=== PATIENT | female | born 1965 | race Caucasian/White ===

== ENCOUNTER 2024-04-09 13:53 | Observation (INO) ==
--- NOTE | 2024-04-09 14:36 | Emergency Department Note ---
Impression & Plan Rectal bleeding, Colitis, Tachycardia, Hypertension ED Provider Note NAME: TONY LUNDBERG AGE: 59 SEX: F : 1965 ARRIVES VIA: Walk-In INFORMANT: [Patient] ED PROVIDER(S): [Noel Fuller MD] CHIEF COMPLAINT: Rectal bleeding HISTORY OF PRESENT ILLNESS: The patient is a 59-year-old female presents to the ER with crampy lower abdominal pain that began last night. Patient was somewhat sweaty with the initial episode. She has had this happen to her before from her IBS. She initially was not concerned. The symptoms though persisted all night and then this morning, she went to move her bowels and basically, she just has bloody discharge. The patient has had several bouts of what she thought was going to be diarrhea throughout the day today, but, it has been primarily just blood. The cramping in the lower abdomen has persisted. There was some nausea last evening but no vomiting. No fever. She ate out last night at [employer] but her food seemed fine. She has not had sick contacts. She is not on any blood thinning agents. PMHx/PSHx/Social Hx: See Below PHYSICAL EXAM: GENERAL: Patient is in no acute distress. HEENT: No acute trauma, normocephalic atraumatic, mucous membranes moist, no nasal congestion. NECK: No stridor, no adenopathy, no meningismus, trachea is midline. LUNGS: Clear to auscultation bilaterally, no wheeze, no rhonchi, breath sounds equal. HEART: Mildly tachycardic, regular rhythm, no murmurs. ABDOMEN: Soft, mildly tender to the bilateral lower abdominal quadrants. No peritonitis or distention. Bowel sounds are hypoactive. EXTREMITIES: No cyanosis, full range of motion of all the joints without pain or difficulty. NEUROLOGIC: Oriented x 3, no acute motor or sensory deficits, no focal weakness. SKIN: No jaundice, no diaphoresis. Rectal: No external source for bleeding seen. No hemorrhoids. Digital exam reveals bright red blood per rectum. This exam was done with a female rhit. DIFFERENTIAL DIAGNOSIS: Diverticulitis or colitis, anemia, dehydration, electrolyte imbalance, viral or foodborne illness, among others. EMERGENCY DEPARTMENT PROCEDURES: MEDICAL DECISION MAKING: There is no leukocytosis or concerning anemia. There is a normal platelet count. No coagulopathy. No renal failure or significant electrolyte abnormality. No concerning liver enzyme elevation. ECG shows a sinus tachycardia, no dysrhythmia or ischemia. Cardiac enzyme testing x 1 is not consistent with acute cardiac injury. Abdominal and pelvis CT shows colitis. On exam, the patient was not febrile. She was tachycardic and somewhat hypertensive. Digital rectal exam reveals of bright red blood per rectum. Patient was given IV saline, 2 L. The patient has no history of hypertension. She is asymptomatic with the higher blood pressure readings, for now, I think observation would be adequate. The patient presents with lower abdominal pain, tachycardia and persistent bright red blood per rectum. She does have colitis on CT imaging. I do think she requires a hospital stay, she would benefit from further hydration as well as observation. She may require a colonoscopy if things are persisting. The patient was asked to provide a stool sample, she has not been able to do so. She has produced only blood rectally. I did speak with the patient, I spoke with case management, the on-call hospitalist was consulted. Prior/Outside records/notes reviewed: None ECG per my interpretation: Indication was tachycardia. The ECG shows a sinus tachycardia with a rate of 112. There is no acute ST elevation, no PVCs. The QTc is 461. Continuous Cardiac Monitoring: An order was placed for continuous cardiac monitoring. The monitor shows a rate of 110 with sinus tachycardia. Imaging/x-ray results per my interpretation: Chronic Medical/Social conditions affecting care: Care/Management discussed with: Case management, the on-call hospitalist. Level of care consideration(s): After review of the information above and other included data: --I believe the patient requires escalation of care to admission DISPOSITION: Admission Past Med/Surg History Problem List (Updated 04/09/24 @ 17:24 by Noel Fuller MD) Hypertension (Acute) Tachycardia (Acute) Colitis (Acute) Rectal bleeding (Acute) Diabetes mellitus Depression Panic attacks Asthma Fibromyalgia Sleep apnea Hyperlipidemia GERD (gastroesophageal reflux disease) Medical History Rheumatoid arthritis Spondylolisthesis at L4-L5 level Neurogenic claudication Avulsion fracture of left ankle Surgical History (Updated 03/30/24 @ 14:50 by LINNEA Lobato) S/P trigger finger release S/P partial hysterectomy 2007 or 2008 Family History (Updated 03/30/24 @ 15:03 by LIZZETH Rodríguez III) Mother Diabetes Dyslipidemia Thyroid cancer Father Parkinsons disease Dementia Alzheimer disease Aunt Pancreatic cancer Aunt Skin cancer Denies family history of Ovarian cancer Prostate cancer Myocardial infarction Breast cancer Colorectal cancer Social History Smoking Status: Never smoker Second Hand Exposure: No; Do You Dip or Chew Tobacco: No; Hx Alcohol Use: No Hx Substance Use: No Preferred Language: Austrian Visual Impairment: No Limitations Hearing Ability: Normal marital status: Current Living Situation: Spouse current occupational status: employed 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 How many Children do You have: 2 Feels Safe at Home: Yes Childhood Exposure to Second-Hand Smoke: No Diet: regular Dental Care, Regularly: Yes Physical Activity Frequency: Does not Exercise Seatbelt Use: always Sunscreen Use: Yes Allergies Allergies Allergy/AdvReac Type Severity Reaction Status Date / Time No Known Allergies Allergy Verified 03/30/24 14:41 Home Meds Home Medications Medication Instructions Recorded Confirmed atorvastatin 20 mg tablet (Lipitor) 20 mg PO DAILY 12/23/20 03/30/24 cyclobenzaprine 10 mg tablet 10 mg PO HS 12/23/20 03/30/24 duloxetine 60 mg capsule,delayed 60 mg PO DAILY 12/23/20 03/30/24 release (Cymbalta) gabapentin 400 mg capsule 400 mg PO TID 12/23/20 03/30/24 pantoprazole 40 mg tablet,delayed 40 mg PO DAILY 12/23/20 03/30/24 release (Protonix) celecoxib 100 mg capsule (Celebrex) 100 mg PO BID 10/09/21 03/30/24 gabapentin 100 mg capsule 100 mg PO TID 10/09/21 03/30/24 albuterol sulfate 90 mcg/actuation 2 puff inhalation Q4H PRN 09/17/22 03/30/24 aerosol inhaler Shortness Of Breath Or Wheezing metformin 500 mg tablet 2,000 mg PO DAILY 07/31/23 03/30/24 clonazepam 1 mg tablet (Klonopin) 1 mg PO DAILY PRN 03/30/24 03/30/24 ipratropium bromide 21 mcg (0.03 1 spray intranasal BID PRN 03/30/24 %) nasal spray Previous Rx's Medication Instructions Recorded azelastine 137 mcg (0.1 %) nasal 2 spray intranasal DAILY #30 mL 07/31/23 spray lisinopril 5 mg tablet 5 mg PO DAILY #90 tabs 03/30/24 Results & Data (ED) Vital Signs Vital Signs - 24 hr 04/09/24 13:56 04/09/24 16:06 04/09/24 16:32 Temperature 36.2 C L Temperature Source Temporal Artery Scan Pulse Rate 122 H Pulse Rate [Right Finger] 110 H 110 H Pulse Rhythm Regular Pulse Strength Normal Respiratory Rate 16 16 19 Respiratory Effort / Characteristics Non-Labored Non-Labored Spontaneous Respiratory Depth Normal Normal Blood Pressure 130/85 Blood Pressure [Right Arm] 155/72 H 177/108 H Blood Pressure Mean 100 Blood Pressure Mean [Right Arm] 99 131 Blood Pressure Position Sitting Pulse Oximetry 99 97 98 Oxygen Delivery Method Room Air Room Air Room Air Sepsis Recent Fever Within 48 Hours No Sepsis New/Unexplained Change in Mental Status N/A Sepsis Action Taken by Nursing No Action Required 04/09/24 16:35 Temperature Temperature Source Pulse Rate 112 H Pulse Rate [Right Finger] Pulse Rhythm Pulse Strength Respiratory Rate Respiratory Effort / Characteristics Respiratory Depth Blood Pressure Blood Pressure [Right Arm] Blood Pressure Mean Blood Pressure Mean [Right Arm] Blood Pressure Position Pulse Oximetry Oxygen Delivery Method Sepsis Recent Fever Within 48 Hours Sepsis New/Unexplained Change in Mental Status Sepsis Action Taken by Correction Medications Current Medication List: was personally reviewed by me Laboratory Data Attestation: I reviewed the patient's lab results. 04/09/24 15:01 04/09/24 15:01 Lab Results 04/09/24 Range/Units 15:01 WBC 10.38 (4.8-10.8) K/ul RBC 4.49 (4.20-5.40) M/uL Hgb 14.1 (12.0-16.0) g/dl Hct 42.2 (37.0-47.0) % MCV 94.0 (80.0-100.0) fL MCH 31.4 (25.0-34.0) pg MCHC 33.4 (32.0-36.0) g/dL RDW Std Deviation 43.7 (36.4-46.3) fL RDW Coeff of Ra 12.8 (11.5-14.5) % Plt Count 298 (130-400) K/uL MPV 10.8 (9.4-12.4) fL PT 10.7 (9.0-12.0) Seconds INR 1.0 (0.9-1.1) APTT 25 (21-31) Seconds PTT Ratio 0.9 Sodium 141 (136-145) mmol/L Potassium 4.3 (3.5-5.1) mmol/L Chloride 106 (98-107) mmol/L Carbon Dioxide 24 (21-32) mmol/L Anion Gap 11 (3-11) BUN 10 (6-23) mg/dl Creatinine 0.77 (0.6-1.2) mg/dl Est Cr Clr Drug Dosing 84.8 ml/min Est GFR ( Amer) 98.6 ml/min Est GFR (Non-Af Amer) 85.1 ml/min BUN/Creatinine Ratio 13.0 (10-20) Glucose 116 H (70-99(Fasting)) mg/dl Calcium 9.5 (8.6-10.3) mg/dl Total Bilirubin 0.5 (0.2-1.0) mg/dl AST 15 (13-39) U/L ALT 24 (7-52) U/L Alkaline Phosphatase 70 (34-104) U/L Troponin I High Sens < 2.3 (0-14) pg/ml Total Protein 7.3 (6.0-8.3) gm/dl Albumin 4.5 (3.4-5.0) gm/dl Globulin 2.8 (2.5-4.0) gm/dl Albumin/Globulin Ratio 1.6 (0.9-2) Blood Type A Positive Antibody Screen NEGATIVE Administered Medications Sodium Chloride (Nss) 1,000 mls @ 999 mls/hr IV .Q1H1M ONE Stop: 04/09/24 17:20 Last Admin: 04/09/24 16:32 Dose: 999 mls/hr Documented By: ASW Discontinued Medications Sodium Chloride (Nss) 1,000 mls @ 999 mls/hr IV .Q1H1M ONE Stop: 04/09/24 15:24 Last Infusion: 04/09/24 16:09 Dose: Infused Documented By: Admin: 04/09/24 15:01 Dose: 999 mls/hr Documented By: LIZ Ioversol (Optiray 320 100ml) 91 ml IV ONCE ONE Stop: 04/09/24 15:58 Last Admin: 04/09/24 15:57 Dose: 91 ml Documented By: [employer] [facility] Data Radiologist's Impression: Abdomen/Pelvis CT 04/09/24 14:[address] WITH IV CONTRAST CT DOSE: 1273.12 mGy.cm HISTORY: Acute GI bleed bleeding, poss divertic or colitis TECHNIQUE: Multiaxial CT images of the abdomen and pelvis were performed following the IV administration of 92 cc of Optiray, A dose lowering technique was utilized adhering to the principles of ALARA. COMPARISON STUDY: None. FINDINGS: Mild bibasilar atelectasis. 6 mm subpleural solid nodule in the basal right lower lobe on image 6 series 3. No free air. Unremarkable spleen, pancreas, gallbladder and adrenal glands. Hepatic steatosis without evidence of cirrhosis. Patent hepatic and portal veins. Unremarkable kidneys without hydronephrosis. The urinary bladder demonstrates mild circumferential wall thickening. Possible small urachal diverticulum versus median umbilical ligament. No abdominal aortic aneurysm or lymphadenopathy. No bowel obstruction. There is circumferential wall thickening extending from the splenic flexure through the proximal sigmoid with adjacent inflammatory stranding and trace ascites. No CT evidence of acute appendicitis. No drainable fluid collections. No acute fracture. IMPRESSION: 1. A nonspecific colitis extends from the splenic flexure through the proximal sigmoid. 2. No bowel obstruction or pneumoperitoneum. 3. Hepatic steatosis. 4. 6 mm subpleural solid nodule of the right lower lobe. Please refer to below summary of Fleischner criteria recommendations for follow- up of incidental CT nodules (Crystal Maravilla, Guidelines for management of small pulmonary nodules detected on CT scans: A statement from the Fleischner Society, Radiology 237: [phone].) SOLID NODULES Solitary nodule size: <6 mm * Low risk patients: no follow-up needed * high risk patients: optional CT at 12 months Note: newly detected indeterminate nodule in persons 35 years of age or older. * Low risk patients: minimal or absent history of smoking and/or other known risk factors * high risk patients: history of smoking or of other known risk factors (e.g. first degree relative with lung cancer, or exposure to asbestos, radon, uranium) * if a nodule up to 8 mm is partly solid or is ground glass further follow-up is required after 24 months to exclude possible slow growing adenocarcinoma (ANJALI) ACT 112: Negative or not required by law. The above report was generated using voice recognition software. It may contain grammatical, syntax or spelling errors. Electronically signed by: Michael Arias M.D. 04/09/2024 4:54 PM Discharge Plan Visit Data Chief Complaint: Rectal Bleed Stated Complaint: CRAMPING, DIARRHEA, BLOOD IN STOOL ED Provider: Noel Fuller Discharge Problem: Rectal bleeding, Colitis, Tachycardia, Hypertension Patient Disposition: Admitted As Inpatient Condition: Fair Forms Stand Alone Forms: [facility] Prescriptions Prescriptions: No Action duloxetine [Cymbalta] 60 mg capsule,delayed release(DR/EC) 60 mg PO DAILY cyclobenzaprine 10 mg tablet 10 mg PO HS pantoprazole [Protonix] 40 mg tablet,delayed release (DR/EC) 40 mg PO DAILY gabapentin 400 mg capsule 400 mg PO TID Rx Instructions: TOTAL DOSE 500 MG--TAKES WITH 100 MG CAP. atorvastatin [Lipitor] 20 mg tablet 20 mg PO DAILY celecoxib [Celebrex] 100 mg capsule 100 mg PO BID gabapentin 100 mg capsule 100 mg PO TID Rx Instructions: TOTAL DOSE 500 MG--TAKES WITH 400 MG CAP. metformin 500 mg tablet 2,000 mg PO DAILY azelastine 137 mcg (0.1 %) aerosol,spray 2 spray intranasal DAILY Qty: 30 11RF ipratropium bromide 21 mcg (0.03 %) spray,non-aerosol 1 spray intranasal BID PRN Rx Instructions: administer into each nostril clonazepam [Klonopin] 1 mg tablet 1 mg PO DAILY PRN lisinopril 5 mg tablet 5 mg PO DAILY Qty: 90 3RF albuterol sulfate 90 mcg/actuation HFA aerosol inhaler 2 puff inhalation Q4H PRN (Reason: Shortness Of Breath Or Wheezing) Referrals Referrals: Nguyen Casas MD [Outside Practitioners] - Discharge Problem: Hypertension Qualifiers: Hypertension type: unspecified Qualified Code(s): I10 - Essential (primary) hypertension
[2024-04-09] MEDS: SODIUM CHLORIDE 0.9% 1,000 ML IV ONE ×2 (15:01→16:32)
[2024-04-09 15:20] LABS: Hematocrit (blood only) 42.2 % (37.0-47.0); Hemoglobin 14.1 g/dl (12.0-16.0); Mean Corpuscular Hemoglobin 31.4 pg (25.0-34.0); Mean Corpuscular Hgb Conc 33.4 g/dL (32.0-36.0); Mean Platelet Volume 10.8 fL (9.4-12.4); Platelet Count 298 K/uL (130-400); RDW Coefficient of Variation 12.8 % (11.5-14.5); RDW Standard Deviation 43.7 fL (36.4-46.3); Red Blood Count 4.49 M/uL (4.20-5.40); White Blood Count 10.38 K/ul (4.8-10.8)
[2024-04-09 15:36] LABS: Albumin Level 4.5 gm/dl (3.4-5.0); Anion Gap 11 (3-11); Bilirubin,Total 0.5 mg/dl (0.2-1.0); Calcium 9.5 mg/dl (8.6-10.3); Carbon Dioxide 24 mmol/L (21-32); Chloride 106 mmol/L (98-107); Potassium 4.3 mmol/L (3.5-5.1); Sodium 141 mmol/L (136-145)
[2024-04-09 15:42] LABS: Alanine Aminotransferase 24 U/L (7-52); Albumin Globulin Ratio 1.6 (0.9-2); Alkaline Phosphatase 70 U/L (34-104); Aspartate Aminotransferase 15 U/L (13-39); Blood Urea Nitrogen 10 mg/dl (6-23); Creatinine Clr Calc Pharmacy 84.8 ml/min; Est GFR (African American) 98.6 ml/min; Est GFR (Non-African American) 85.1 ml/min; Globulin 2.8 gm/dl (2.5-4.0); Glucose 116 mg/dl (70-99(Fasting)); Total Protein 7.3 gm/dl (6.0-8.3)
[2024-04-09 15:46] LABS: Troponin I High Sensitivity < 2.3 pg/ml (0-14)
[2024-04-09 15:52] LABS: Partial Thromboplastin Ratio 0.9; Partial Thromboplastin Time 25 Seconds (21-31); Prothrombin Time 10.7 Seconds (9.0-12.0)
[2024-04-09] MEDS: OPTIRAY 320 100ml IV ONE (15:57)
--- NOTE | 2024-04-09 16:57 | CT Scan Report ---
ABDOMEN AND PELVIS CT WITH IV CONTRAST CT DOSE: 1273.12 mGy.cm HISTORY: Acute GI bleed bleeding, poss divertic or colitis TECHNIQUE: Multiaxial CT images of the abdomen and pelvis were performed following the IV administrat ion of 92 cc of Optiray, A dose lowering technique was utilized adhering to the principles of ALARA. COMPARISON STUDY: None. FINDINGS: Mild bibasilar atelectasis. 6 mm subpleural solid nodule in the basal right lower lobe on i mage 6 series 3. No free air. Unremarkable spleen, pancreas, gallbladder and adrenal glands. Hepatic steatosis without evidence of cirrhosis. Patent hepatic and portal veins. Unremarkable kidneys withou t hydronephrosis. The urinary bladder demonstrates mild circumferential wall thickening. Possible sma ll urachal diverticulum versus median umbilical ligament. No abdominal aortic aneurysm or lymphadenop athy. No bowel obstruction. There is circumferential wall thickening extending from the splenic flexure thr ough the proximal sigmoid with adjacent inflammatory stranding and trace ascites. No CT evidence of a cute appendicitis. No drainable fluid collections. No acute fracture. IMPRESSION: 1. A nonspecific colitis extends from the splenic flexure through the proximal sigmoid. 2. No bowel obstruction or pneumoperitoneum. 3. Hepatic steatosis. 4. 6 mm subpleural solid nodule of the right lower lobe. Please refer to below summary of Fleischner criteria recommendations for follow-up of incidental CT n odules (Crystal Maravilla, Guidelines for management of small pulmonary nodules detected on CT scans: A sta tement from the Fleischner Society, Radiology 237: [phone].) SOLID NODULES Solitary nodule size: <6 mm * Low risk patients: no follow-up needed * high risk patients: optional CT at 12 months Note: newly detected indeterminate nodule in persons 35 years of age or older. * Low risk patients: minimal or absent history of smoking and/or other known risk factors * high risk patients: history of smoking or of other known risk factors (e.g. first degree relative with lung cancer, or exposure to asbestos, radon, uranium) * if a nodule up to 8 mm is partly solid or is ground glass further follow-up is required after 24 m onths to exclude possible slow growing adenocarcinoma (ANJALI) ACT 112: Negative or not required by law. The above report was generated using voice recognition software. It may contain grammatical, syntax o r spelling errors. Electronically signed by: Michael Arias M.D. 04/09/2024 4:54 PM
--- NOTE | 2024-04-09 18:43 | History & Physical Report ---
Date of Service April 09, 2024 Assessment & Plan (1) Colitis: (2) Bloody diarrhea: (3) Depression: (4) Asthma: (5) Sleep apnea: (6) Diabetes mellitus: (7) Hypertension: (8) GERD (gastroesophageal reflux disease): (9) Hyperlipidemia: Plan Patient is a 59 yo F w/ a PMHx of HTN, HLD, T2DM, GERD, sleep apnea, depression, panic attacks, asthma, fibromyalgia, and [id number] who presents today after a 1-day history of bloody bowel movements/diarrhea that began this morning after experiencing cramping and diarrhea last night. 1) Bloody diarrhea/Nonspecific colitis - WBC count WNL, BMP WNL, - last colonoscopy in 2017, normal - CT-AP w/ IV contrast: showing nonspecific colitis from splenic flexure through sigmoid colon - Stool PCR panel ordered, still uncollected; C. diff toxin gene PCR ordered - ESR and CRP ordered, in the event there's an undiagnosed IBD component to this 2) IBS-D (diarrhea sub-type) - continue duloxetine (treats multiple conditions present in patient) - resume pro-biotic (PB8 brand) once discharged 3) GERD - continue pantoprazole, 40 mg, PO, daily 4) HTN - hold lisinopril, 5 mg, PO, daily and re-start tomorrow if BP's high 5) Asthma - continue azelastine, ipratropium bromide 6) T2DM - insulin order set placed, patient insulin naive - 50 CF, no basal insulin ordered, no carb coverage ordered 7) HLD - continue pravastatin 8) Sleep apnea - CPAP worn nightly; ordered during inpatient stay, 12 cm H2O cont. pressure Code status: Full code Disposition: [id number] FENGI: Clear liquids DVT Prophylaxis: SCD and ambulation as necessary History of Present Illness Chief Complaint: cramping, bloody bowel movements Primary Care Provider: Santino Vasques, III, INSULATION CUPOL[employer] CHARGER Patient had her first bloody, mucous-like this morning and has had five in total, including 1 since arriving at the hospital. Patient has never had bloody bowel movements before, but has diarrhea-predominant IBS for 20 yrs. Patient had her last colonoscopy in 2017, at which pt they said repeat in 5 yrs (everything nml, but suboptimal prep). Since that time pt has had ~ 1 IBS/diarrhea episode per year and just used Protonix and a probiotic, PB8. The patient had her last meal out at [employer] on Sat, had severe cramping at 9:30 pm, moved her bowels at 11 pm, diarrhea but pt thought it was IBS episode. At 6:30 am at which pt the cramping pain, fecal urgency woke her up. Every BM since then has been bloody diarrhea. Patient received two courses of antibiotics since January for sinus infections. Has not received any steroid courses for her rheumatoid arthritis and is on no alf medications for this condition. Allergies Allergy/AdvReac Type Severity Reaction Status Date / Time No Known Allergies Allergy Verified 04/09/24 17:59 Home Medications Medication Instructions Recorded Confirmed Type cyclobenzaprine 10 mg tablet 10 mg PO HS 12/23/20 04/09/24 History duloxetine 60 mg capsule,delayed 60 mg PO DAILY 12/23/20 04/09/24 History release (Cymbalta) pantoprazole 40 mg tablet,delayed 40 mg PO DAILY 12/23/20 04/09/24 History release (Protonix) azelastine 137 mcg (0.1 %) nasal 2 spray intranasal DAILY #30 mL 07/31/23 Rx spray ipratropium bromide 21 mcg (0.03 1 spray intranasal BID 03/30/24 04/09/24 History %) nasal spray lisinopril 5 mg tablet 5 mg PO DAILY #90 tabs 03/30/24 04/09/24 Rx metformin 500 mg tablet,extended 2,000 mg PO QAM 04/09/24 04/09/24 History release 24 hr pravastatin 80 mg tablet 80 mg PO HS 04/09/24 04/09/24 History Past Med/Surg History Problem List (Updated 04/09/24 @ 21:01 by Edwin Logan MD) Bloody diarrhea Hypertension (Acute) Tachycardia (Acute) Colitis (Acute) Rectal bleeding (Acute) Diabetes mellitus Depression Panic attacks Asthma Fibromyalgia Sleep apnea Hyperlipidemia GERD (gastroesophageal reflux disease) Medical History Rheumatoid arthritis Spondylolisthesis at L4-L5 level Neurogenic claudication Avulsion fracture of left ankle Surgical History (Updated 03/30/24 @ 14:50 by LINNEA Lobato) S/P trigger finger release S/P partial hysterectomy 2007 or 2008 Family History (Updated 03/30/24 @ 15:03 by LIZZETH Rodríguez III) Mother Diabetes Dyslipidemia Thyroid cancer Father Parkinsons disease Dementia Alzheimer disease Aunt Pancreatic cancer Aunt Skin cancer Denies family history of Ovarian cancer Prostate cancer Myocardial infarction Breast cancer Colorectal cancer Social History Smoking Status: Never smoker Second Hand Exposure: No; Do You Dip or Chew Tobacco: No; Hx Alcohol Use: No Hx Substance Use: No Preferred Language: Malay Communication Ability: Effective Visual Impairment: No Limitations Hearing Ability: Normal Dowel Maker Required: No Beliefs That Will Affect Care: None marital status: Current Living Situation: Spouse current occupational status: employed 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 How many Children do You have: 2 Other Information That Helps Us Care for You: No Feels Safe at Home: Yes Safety Concerns: Feels Safe At This Time Childhood Exposure to Second-Hand Smoke: No Diet: regular Dental Care, Regularly: Yes Physical Activity Frequency: Does not Exercise Seatbelt Use: always Sunscreen Use: Yes Assistive Devices: CPAP Review of Systems Constitutional: + fatigue; no fever, no chills and no we akness Ear, Nose, Mouth, Throat: no nasal congestion, no nasal discharge, no post nasal drip and no sore throat Respiratory: no cough, no chest congestion, no dyspnea and no wheezing Cardiovascular: no chest pain, no palpitations and no lightheadedness Gastrointestinal: + abdominal pain, + cramping, + diarrhea /loose stools, + constant urge to pass stools and + blood in stools; no nausea and no vomiting Genitourinary: no dysuria and no urinary frequency Neurologic: no unsteadiness, no tingling, no numbness, no dizziness and no headache(s) Physical Exam Constitutional: WD/WN, vitals as above Respiratory: normal respiratory effort, lungs clear to auscultation Cardiovascular: RRR, no murmur, no edema Extremities: normal capillary refill; no calf tenderness and no pedal edema Gastrointestinal (Abdomen): Inspection/Auscultation: normal bowel sounds Percussion/Palpation: + abdomen tender (tenderness in lower abdomen bilaterally) and abdomen soft; no abdominal mass Psychiatric: A+Ox3, euthymic affect Results & Data Results & Data Vital Signs (Past 12 Hours) Vital Signs Temp Pulse Pulse Resp BP BP Pulse Ox 04/09/24 17:54 115 H 16 163/107 H 99 04/09/24 16:35 112 H 04/09/24 16:32 110 H 19 177/108 H 98 04/09/24 16:06 110 H 16 155/72 H 97 04/09/24 13:56 36.2 C L 122 H 16 130/85 99 O2 Del Method 04/09/24 17:54 Room Air 04/09/24 16:35 04/09/24 16:32 Room Air 04/09/24 16:06 Room Air 04/09/24 13:56 Room Air Diagnostic Findings Abdomen/Pelvis CT 04/09/24 14:[address] WITH IV CONTRAST CT DOSE: 1273.12 mGy.cm HISTORY: Acute GI bleed bleeding, poss divertic or colitis TECHNIQUE: Multiaxial CT images of the abdomen and pelvis were performed following the IV administration of 92 cc of Optiray, A dose lowering technique was utilized adhering to the principles of ALARA. COMPARISON STUDY: None. FINDINGS: Mild bibasilar atelectasis. 6 mm subpleural solid nodule in the basal right lower lobe on image 6 series 3. No free air. Unremarkable spleen, pancreas, gallbladder and adrenal glands. Hepatic steatosis without evidence of cirrhosis. Patent hepatic and portal veins. Unremarkable kidneys without hydronephrosis. The urinary bladder demonstrates mild circumferential wall thickening. Possible small urachal diverticulum versus median umbilical ligament. No abdominal aortic aneurysm or lymphadenopathy. No bowel obstruction. There is circumferential wall thickening extending from the splenic flexure through the proximal sigmoid with adjacent inflammatory stranding and trace ascites. No CT evidence of acute appendicitis. No drainable fluid collections. No acute fracture. IMPRESSION: 1. A nonspecific colitis extends from the splenic flexure through the proximal sigmoid. 2. No bowel obstruction or pneumoperitoneum. 3. Hepatic steatosis. 4. 6 mm subpleural solid nodule of the right lower lobe. Please refer to below summary of Fleischner criteria recommendations for follow- up of incidental CT nodules (Crystal Maravilla, Guidelines for management of small pulmonary nodules detected on CT scans: A statement from the Fleischner Society, Radiology 237: [phone].) SOLID NODULES Solitary nodule size: <6 mm * Low risk patients: no follow-up needed * high risk patients: optional CT at 12 months Note: newly detected indeterminate nodule in persons 35 years of age or older. * Low risk patients: minimal or absent history of smoking and/or other known risk factors * high risk patients: history of smoking or of other known risk factors (e.g. first degree relative with lung cancer, or exposure to asbestos, radon, uranium) * if a nodule up to 8 mm is partly solid or is ground glass further follow-up is required after 24 months to exclude possible slow growing adenocarcinoma (ANJALI) ACT 112: Negative or not required by law. The above report was generated using voice recognition software. It may contain grammatical, syntax or spelling errors. Electronically signed by: Michael Arias M.D. 04/09/2024 4:54 PM Supervising Physician Co-Signing Physician Notes I personally saw and examined the patient. I verified all velazquez points and agree with resident physician Dr Igor Logan, with the following exceptions and/or additions: 59 year old female presents to the ER with bloody diarrhea starting this morning. She reports a history of irritable bowel syndrome with multiple colonoscopies in the past and no history of inflammatory bowel disease. She gets diarrhea with abdominal pain similar to what started last night approximately twice a year. This morning at 10 bloody therefore she decided to come to the ER for further evaluation. No fever, chills or urinary symptoms. O/E HS RRR, no murmurs, Chest CTAB, Abdo mild lower abdominal tenderness, no guarding or rebound tenderness A/P Bloody diarrhea - stool and c. diff PCR (antibiotics within the last 3 months), ongoing treatment depending on results, repeat CBC in AM (6) Diabetes mellitus Diabetes mellitus complication status: without complication Diabetes mellitus long line teamster insulin use: without long line teamster use Diabetes mellitus type: type 2 Qualified Code(s): E11.9 - Type 2 diabetes mellitus without complications (7) Hypertension Hypertension type: unspecified Qualified Code(s): I10 - Essential (primary) hypertension
[2024-04-09] MEDS: LACTATED RINGER'S 500 ML IV ONE (21:10)
[2024-04-09 22:35] LABS: C Reactive Protein 0.52 mg/dl (0-0.5)
[2024-04-09] MEDS ORDERED: GLUCOSE 10 TAB/TUBE PO PRN (23:16)
[2024-04-09] MEDS ORDERED: CARBOHYDRATES FOR HYPOGLYCEMIA PO PRN (23:16)
[2024-04-09] MEDS ORDERED: DEXTROSE 50% 50 ML SYRINGE IV PRN (23:16)
[2024-04-09] MEDS ORDERED: GLUCAGON FOR INJ 1 MG VIAL SQ PRN (23:16)
[2024-04-09] MEDS ORDERED: GLUCOSE 40% GEL 15 GM TUBE PO PRN (23:16)
[2024-04-10] MEDS: INSULIN ASPART PER UNIT CHARGE SC SCH (00:14)
[2024-04-10] MEDS: PRAVASTATIN SOD 40 MG TAB PO SCH (00:22)
[2024-04-10] MEDS: CYCLOBENZAPRINE HCL 10 MG TAB PO SCH (00:22)
[2024-04-10 06:28] LABS: Basophils # (auto) 0.03 K/uL (0.00-0.20); Basophils % (auto) 0.3 %; Eosinophils # (auto) 0.21 K/uL (0.00-0.50); Hematocrit (blood only) 41.1 % (37.0-47.0); Hemoglobin 13.7 g/dl (12.0-16.0); Immature Granulocytes # (auto) 0.02 K/uL (0.01-0.20); Immature Granulocytes % (auto) 0.2 %; Lymphocytes # (auto) 2.46 K/uL (1.20-3.40); Lymphocytes % (auto) 23.6 %; Mean Corpuscular Hemoglobin 31.1 pg (25.0-34.0); Mean Corpuscular Hgb Conc 33.3 g/dL (32.0-36.0); Mean Corpuscular Volume 93.2 fL (80.0-100.0); Mean Platelet Volume 10.4 fL (9.4-12.4); Monocytes # (auto) 0.68 K/uL (0.11-0.59); Monocytes % (auto) 6.5 %; Neutrophils # (auto) 7.03 K/uL (1.40-6.50); Neutrophils % (auto) 67.4 %; Platelet Count 300 K/uL (130-400); RDW Coefficient of Variation 12.9 % (11.5-14.5); RDW Standard Deviation 44.1 fL (36.4-46.3); Red Blood Count 4.41 M/uL (4.20-5.40); White Blood Count 10.43 K/ul (4.8-10.8)
[2024-04-10 06:52] LABS: BUN Creatinine Ratio 7.9 (10-20); Calcium 9.1 mg/dl (8.6-10.3); Creatinine Clr Calc Pharmacy 86.3 ml/min; Est GFR (African American) 100.2 ml/min; Est GFR (Non-African American) 86.5 ml/min; Potassium 3.9 mmol/L (3.5-5.1)
[2024-04-10] MEDS: DULoxetine HCL 60 MG CAP PO SCH (08:41)
[2024-04-10] MEDS: PANTOprazole 40 MG TAB PO SCH (08:42)
[2024-04-10] MEDS: AZELASTINE HCL 0.1% NASAL 200 SPRAYS/27,400 MCG BTL SCH (08:42)
--- OUTSIDE RECORDS SUMMARY | 2024-04-10 10:00 | External Medical Summary | Summary of Care ---
Author Name Unknown Organization [facility] Address [address] [place] [address] Phone [phone] Care Team Providers Care Fuel Cell Designer Name Role Phone Nguyen Casas MD Primary Care Provider Reason for Visit * Reason Comments eRx-Medication Refill Encounter Details Date Type Department Care Team ([facility] Contact Info) Description 04/08/2024 [facility]ill [facility] [address] [facility] [id number] [facility] [address] [facility] [address] Diabetes mellitus without complication (HCC) Allergies No known active allergiesdocumented as of this encounter (statuses as of 04/09/2024) Medications Medication Sig Dispensed Refills Start Date End Date Status Respiratory Therapy Supplies (NEBULIZER/ADULT MASK) KITIndications:Inte rmittent asthma with reliever use up to twice per week, uncomplicated,Viral illness Use as directed with nebulizer machine 1 Kit 1 6 Active ketotifen fumarate (ZADITOR) 0.025 % ophthalmic solution Instill 1 Drop into both eyes 2 times a day as needed (allergic eye symptoms). 5 mL 0 6 Active Probiotic Capsule Take 1 Cap by mouth three times a day with meals. Active fluticasone (FLONASE) 50 MCG/ACT nasal sprayIndications:Mi xed rhinitis Administer 2 Sprays into nostril daily. 48 g 4 0 Active fexofenadine (BRONSON) 180 MG TabletIndications:M ixed rhinitis Take 1 Tablet by mouth daily as needed for Allergies. 30 Tab 11 0 Active Qnasl 80 MCG/ACT Nasal Aerosol SolutionIndications :Chronic frontal sinusitis Administer into nostril 2 Puffs daily . 1 Each 5 2 Active OneTouch Verio w/Device KitIndications:Diab etes mellitus without complication (HCC) Use up to 4 times a day E11.9 1 Kit 2 Active OneTouch Verio In Vitro Strip (Glucose Blood)Indications:D iabetes mellitus without complication (HCC) Use up to 4 times a day E11.9 100 Strip 11 2 Active OneTouch UltraSoft LancetsIndications: Diabetes mellitus without complication (HCC) Use as directed 4 times a day as needed (blood sugar). Use up to four times a day as directed. Dx: E11.9 100 Each 5 2 Active Albuterol Sulfate (2.5 MG/3ML) 0.083% Inhalation Nebulization Solution (Proventil)Indicati ons:Bronchitis, complicated,Intermi ttent asthma with reliever use up to twice per week with acute exacerbation Inhale 1 Vial via nebulizer every 4 hours as needed for Wheezing. 120 mL 3 3 Active Albuterol Sulfate HFA 108 (90 Base) MCG/ACT Inhalation Aerosol SolutionIndications :Intermittent asthma with reliever use up to twice per week with acute exacerbation,Mild intermittent asthma with exacerbation Inhale 2 Puffs by mouth every 4 hours as needed for Wheezing. 1 g 5 3 Active Benzonatate 100 MG Oral CapsuleIndications: Viral URI with cough Take 1 Capsule by mouth 3 times a day as needed for Cough. 30 Capsule 1 3 Active Mucinex DM 30-600 MG Oral Tablet Extended Release 12 HourIndications:Acu te non-recurrent frontal sinusitis Take 1 Tablet by mouth 2 times a day as needed for Cough. Take with plenty of water. Do not cut, crush or chew 40 Tablet 2 3 Active Celecoxib 100 MG Oral Capsule (CeleBREX)Indicatio ns:Fibromyalgia,Lum bar degenerative disc disease,Primary osteoarthritis of both knees TAKE ONE CAPSULE BY MOUTH TWICE A DAY (MORNING AND BEFORE BEDTIME) 60 Capsule 5 3 Active Ciclopirox 8 % External SolutionIndications :Onychomycosis of toenail APPLY OVER NAIL AND SURROUNDING SKIN. APPLY DAILY OVER PREVIOUS COAT. AFTER 7 DAYS, MAY REMOVE WITH ALCOHOL AND CONTINUE CYCLE 6.6 mL 3 Active clonazePAM 1 MG Oral Tablet (KlonoPIN)Indicatio ns:Anxiety TAKE 1/2 TABLET BY MOUTH ONCE A DAY NEEDED FOR ANXIETY 20 Tablet 4 Active Pravastatin Sodium 80 MG Oral TabletIndications:D yslipidemia, goal LDL below 70 Take 1 Tablet by mouth at bedtime. 90 Tablet 3 4 Active Pantoprazole Sodium 40 MG Oral Tablet Delayed Release (Protonix)Indicatio ns:Abdominal pain, epigastric TAKE ONE TABLET BY MOUTH EVERY MORNING 90 Tablet 1 4 Active metFORMIN HCl ER 500 MG Oral Tablet Extended Release 24 Hour (Glucophage XR)Indications:Diab etes mellitus without complication (HCC) TAKE FOUR TABLETS BY MOUTH DAILY WITH BREAKFAST 360 Tablet 3 4 Active Gabapentin 400 MG Oral Capsule (Neurontin)Indicati ons:Lumbar degenerative disc disease TAKE ONE CAPSULE BY MOUTH EVERY MORNING AND ONE CAP AT NOON AND ONE CAP BEFORE BEDTIME ALONG WITH 100 MG 90 Capsule 5 4 Active Cyclobenzaprine HCl 10 MG Oral Tablet (Flexeril)Indicatio ns:RLS (restless legs syndrome) TAKE ONE TABLET BY MOUTH EVERY DAY AT BEDTIME 90 Tablet 4 Active DULoxetine HCl 60 MG Oral Capsule Delayed Release Particles (Cymbalta)Indicatio ns:Lumbar back pain with radiculopathy affecting lower extremity TAKE ONE CAPSULE BY MOUTH EVERY MORNING. DO NOT CUT, CRUSH OR CHEW. 90 Capsule 2 4 Active Lisinopril 5 MG Oral Tablet (Prinivil)Indicatio ns:Diabetes mellitus without complication (HCC) TAKE ONE TABLET BY MOUTH EVERY MORNING 30 Tablet 5 4 Active Lisinopril 5 MG Oral Tablet (Prinivil)Indicatio ns:Diabetes mellitus without complication (HCC) Take 1 Tablet by mouth in the morning. 30 Tablet 5 4 04/09/20 24 Discontinued documented as of this encounter (statuses as of 04/09/2024) Active Problems Problem Noted Date Diagnosed Date HTN, goal below 130/80 10/05/2023 Anxiety 10/05/2023 Gastroesophageal reflux disease 09/19/2022 Neurogenic claudication 09/19/2022 Spondylolisthesis at L4-L5 level 09/19/2022 Diabetes mellitus without complication Trigger middle finger of right hand 03/31/2021 Primary osteoarthritis of both knees 04/12/2017 RLS (restless legs syndrome) 10/14/2015 Mixed rhinitis 06/28/2014 Intermittent asthma with reliever use up to twic e per week 06/28/2014 Hyperlipidemia with target LDL less than 130 04/2013 Recurrent major depressive disorder, in partial remission ROLDAN (generalized anxiety disorder) Lumbar degenerative disc disease Fibromyalgia documented as of this encounter (statuses as of 04/09/2024) Resolved Problems Problem Noted Date Diagnosed Date Resolved Date Rheumatoid arthritis 09/19/2022 024 Prediabetes 11/12/2017 09/19/2022 Overview: Per Prediabetes protocol #1 Allergic conjunctivitis 05/30/20162 09/2021 documented as of this encounter (statuses as of 04/09/2024) Immunizations Name Administration Dates Next Due COVID-19 mRNA, LNP-s, No Pre serve, 2-Dose Series (Moderna) 12/06/2020,11/08/2020 documented as of this encounter Social History Tobacco Use Types Packs/Day Years Used Date Smoking Tobacco: Never Smokeless Tobacco: Never Comments:no passive smoke Alcohol Use Standard Drinks/Week Comments No 0 (1 standard drink = 0.6 oz pur e alcohol) PHQ-2 Answer Date Recorded PHQ Adult Total Score 2 10/03/2023 Hunger Vital Sign Answer Date Recorded Within the past 12 months, y ou worried that your food would run out before you got the money to buy more. Patient declined Within the past 12 months, t he food you bought just didn't last and you didn't have money to get more. Patient declined Childcare Answer Date Recorded Do you feel overwhelmed with taking care of a child, family member or friend? No 06/26/2023 Does your family need help f inding childcare? (Household - for ages 0-17 years) Not on file 06/26/2023 Clothing Answer Date Recorded Have you been unable to get clothing when it was really needed? No 06/26/2023 Is your family able to get c lothes or diapers when needed? (Household - for ages 0-17 years) Not on file 06/26/2023 Personal Safety Answer Date Recorded Do you feel unsafe or have concerns for your saf ety? No 06/26/2023 Do you have concerns for you r family's safety? (Household - for ages 0-17 years) Not on file 06/26/2023 Utilities Answer Date Recorded Do you have trouble paying y our heating, water, or electric bill? No 06/26/2023 Is your family able to pay t he heat, water, or electric bill? (Household - for ages 0-17 years) Not on file 06/26/2023 Does your family have access to good internet? (Household - for ages 0-17 years) Not on file 06/26/2023 Employment Status Answer Date Recorded Are you unemployed or without regular income? No 06/26/2023 Does the household have a [facility] source of income? (Household - for ages 0-17 years) Not on file 06/26/2023 Social Connections Answer Date Recorded How often do you feel lonely or isolated from th ose around you? Never 06/26/2023 Financial Resource Strain Answer Date R ecorded Do you have any trouble payi ng for your medications, or do you think you might in the future? No 06/26/2023 Does your family have troubl e paying for medicine? (Household - for ages 0-17 years) Not on file 06/26/2023 Transportation Needs Answer Date Record ed READ ONLY Do you have troubl e getting a ride to medical visits or work? Never True 06/26/2023 Does your family have a hard time getting a ride to doctors visits? (Household - for ages 0-17 years) Not on file 06/26/2023 Has lack of transportation k ept you from medical appointments, meetings, work, or from getting things needed for daily living? Check all that apply. (Adult - for ages 18 years and over) Not on file 06/26/2023 Do you (or your family) have trouble finding or paying for a ride (transportation)? (Household - for ages 0-17 years) Not on file 06/26/2023 Housing Stability Answer Date Recorded Do you currently live in a s helter or have no steady place to sleep at night? No 06/26/2023 READ ONLY Do you think you a re at risk of becoming homeless? No 06/26/2023 Does your family worry about paying for your home or becoming homeless? (Household - for ages 0-17 years) Not on file 0 06/26/2023 Are you homeless or worried that you might be in the future? (Adult - for ages 18 years and over) Not on file Are you (or your family) adolfo eless or worried that you might be in the future? (Household - for ages 0-17 years) Not on file Food Insecurity Answer Date Recorded Do you need food for this week? No 06/26/2023 Are you able to get enough f ood for your family? (Household - for ages 0-17 years) Not on file 06/26/2023 Does your family need food t his week? (Household - for ages 0-17 years) Not on file 06/26/2023 Do you always have enough fo od for your family? (Household - for ages 0-17 years) Not on file 06/26/2023 Sex and Gender Information Value Date Recorded Sex Assigned at Female 09/10/2019 9:16 AM EST Gender Identity Female 09/10/2019 9:16 AM EST Sexual Orientation Straight 09/10/2022 11 :07 AM EST Sexual Orientation Choose not to disclose 2021 11:07 AM EST Job Start Date Occupation Industry Not on file Not on file Not on file documented as of this encounter Miscellaneous Notes * Telephone Encounter - Saman Saavedra [facility] - 04/09/2024 8:15 AM EDT Signed Prescriptions: Disp Refills Lisinopril 5 MG Oral Tablet (Prinivil) 30 Tab*5 Sig: TAKE ONE TABLET BY MOUTH EVERY MORNINGAuthorizing Provider: NGUYEN CASAS User: SAMAN SAAVEDRA documented in this encounter Plan of Treatment Upcoming Encounters Date Type Department Care Team (Late st Contact Info) Description 04/21/2024 9:00 AM EDT Imaging Radiology [address] [place] [address] Scheduled Procedures Name Priority Associated Diagnoses Date/Ti me COLONOSCOPY FLEXIBLE PROXIMAL DIAGNOSTIC Recall Colon cancer screening Health Maintenance Due Date Last Done Comments Pneumococcal Vaccine: Pediatrics (0 to 5 Years) and At-Risk Patients (6 to 64 Years) (1 of 2 - PCV) 1972 HIV Screening 1981 DTaP,Tdap,and Td Vaccines (1 - Tdap) 1985 Hepatitis B Vaccine (1 of 3 - 19+ 3-dose series) 1985 Cologuard 2011 Fecal Occult Blood Test 2011 Sigmoidoscopy 2011 Zoster Vaccines (1 of 2) 2016 COVID-19 Vaccine (3 - season) 2023 12/06/2020, 11/08/2020 HbA1c 04/02/2024 10/03/2023, 06/01, 09/11/2022, Additional history exists Mammogram 05/10/2024 05/10/2023, 03/31, 03/09/2021, Additional history exists Influenza Vaccine (FLU shot) (#1) 2024 Diabetic Eye Exam 06/28/2024 06/28/2023, 08/22/2020 Diabetic Foot Exam 06/28/2024 06/28/2023 Albumin/Creatinine Ratio 10/03/2024 10/03/2023 Depression Monitoring 10/03/2024 10/03/2023 GFR 10/03/2024 10/03/2023, 08/30, 07/17/2021, Additional history exists Colonoscopy 10/04/2026 10/04/2016, 10/04/2016 Colorectal Cancer Screening 10/04/2026 Lipid Panel 10/03/2028 10/03/2023, 08/30, 07/17/2021, Additional history exists HPV (Gardasil) Vaccine Aged Out No lo nger eligible based on patient's age to complete this topic MENINGOCOCCAL (MENACTRA/MENVEO) Aged Out No longer eligible based on patient's age to complete this topic documented as of this encounter Medical Devices Not on filedocumented as of this encounter Visit Diagnoses Diagnosis Diabetes mellitus without complication (HCC) Type II or unspecified type diabetes mellitus without mention of complication, not stated as uncontrolled documented in this encounter Care Teams Fuel Cell Designer Relationship Specialty Start Date End Date Nguyen Casas MD [address] [place] [id number] PCP - General Internal Medicine 12/26/22 documented as of this encounter
[2024-04-10 10:40] LABS: Adenovirus F 40/41 PCR Not Detected (NotDetected); Astrovirus PCR Not Detected (NotDetected); Campylobacter PCR Not Detected (NotDetected); Cryptosporidium PCR Not Detected (NotDetected); Cyclospora cayetanensis PCR Not Detected (NotDetected); Entamoeba histolytica PCR Not Detected (NotDetected); Enteroaggregative E.coli(EAEC) Not Detected (NotDetected); Enteropathogenic E.coli (EPEC) Not Detected (NotDetected); Enterotoxigenic E.coli (ETEC) Not Detected (NotDetected); Giardia lamblia PCR Not Detected (NotDetected); Norovirus GI/GII PCR Not Detected (NotDetected); Plesiomonas shigelloides PCR Not Detected (NotDetected); Rotavirus A PCR Not Detected (NotDetected); Salmonella PCR Not Detected (NotDetected); Sapovirus PCR Not Detected (NotDetected); Shiga-like Toxin E.coli (STEC) Not Detected (NotDetected); Shigella/Enteroinvasive E.coli Not Detected (NotDetected); Vibrio cholerae PCR Not Detected (NotDetected); Vibrio species PCR Not Detected (NotDetected); Yersinia enterocolitica PCR Not Detected (NotDetected)
--- NOTE | 2024-04-10 10:43 | Billing Data ---
Date of Service April 09, 2024 Coding Level of Care Code 46636 INT INP/OBS CARE
--- NOTE | 2024-04-10 12:44 | Electrocardiogram Report ---
Test Reason : Blood Pressure : / mmHG Vent. Rate : 112 BPM Atrial Rate : 112 BPM P-R Int : 148 ms QRS Dur : 086 ms QT Int : 338 ms P-R-T Axes : 062 013 058 degrees QTc Int : 461 ms Sinus tachycardia Poor R wave progression, consider anterior MN vs. lead placement vs. LVH Otherwise normal ECG No previous ECGs available Confirmed by Edwin Muñoz ([id number]) on 04/10/2024 12:44:13 PM Referred By: REFERRED SELF Confirmed By:Spencer Muñoz
[2024-04-10] MEDS: LACTATED RINGER'S 1,000 ML IV SCH (17:26)
[2024-04-10] MEDS: ACETAMINOPHEN 325 MG TAB PO PRN (19:40)
--- NOTE | 2024-04-10 23:50 | Hospitalist Progress Note ---
Date of Service April 10, 2024 Assessment & Plan (1) Colitis: (2) Bloody diarrhea: (3) Depression: (4) Asthma: (5) Sleep apnea: (6) Diabetes mellitus: (7) Hypertension: (8) GERD (gastroesophageal reflux disease): (9) Hyperlipidemia: Plan Patient is a 59 yo F w/ a PMHx of HTN, HLD, T2DM, GERD, sleep apnea, depression, panic attacks, asthma, fibromyalgia, and [id number]-[id number] who presents today after a 1-day history of bloody bowel movements/diarrhea that began this morning after experiencing cramping and diarrhea last night. 1) Bloody diarrhea/Nonspecific colitis - WBC count WNL, BMP WNL, - last colonoscopy in 2017, normal - CT-AP w/ IV contrast: showing nonspecific colitis from splenic flexure through sigmoid colon - Stool PCR panel ordered, still uncollected; C. diff toxin gene PCR ordered - ESR and CRP ordered, in the event there's an undiagnosed IBD component to this Symptoms appear to have improved, but remain present. PCR were negative for infectious causes. Patient remains tachycardic 2) IBS-D (diarrhea sub-type) - continue duloxetine (treats multiple conditions present in patient) - resume pro-biotic (PB8 brand) once discharged 3) GERD - continue pantoprazole, 40 mg, PO, daily 4) HTN - hold lisinopril, 5 mg, PO, daily and re-start tomorrow if BP's high 5) Asthma - continue azelastine, ipratropium bromide 6) T2DM - insulin order set placed, patient insulin naive - 50 CF, no basal insulin ordered, no carb coverage ordered 7) HLD - continue pravastatin 8) Sleep apnea - CPAP worn nightly; ordered during inpatient stay, 12 cm H2O cont. pressure Code status: Full code Disposition: Noy-Ixur-Qyko FENGI: Clear liquids DVT Prophylaxis: SCD and ambulation as necessary Admission and Anticipated Discharge Date Admission Date: April 09, 2024 Subjective Patient reports her symptoms have improved but are still present. Review of Systems Review of Systems: All systems reviewed & are unremarkable except as noted in HPI & below Physical Exam Constitutional: WD/WN, vitals as above Respiratory: normal respiratory effort, lungs clear to auscultation Cardiovascular: RRR, no murmur, no edema Extremities: normal capillary refill; no calf tenderness and no pedal edema Gastrointestinal (Abdomen): Inspection/Auscultation: normal bowel sounds Percussion/Palpation: + abdomen tender (tenderness in lower abdomen bilaterally) and abdomen soft; no abdominal mass Psychiatric: A+Ox3, euthymic affect Results & Data Results & Data Vital Signs (Past 12 Hours) Vital Signs Temp Pulse Pulse Resp BP BP Pulse Ox 04/10/24 22:52 93 H 04/10/24 22:02 36.5 C 89 18 102/67 95 04/10/24 19:08 36.7 C 112 H 18 136/83 97 04/10/24 15:40 117 H 04/10/24 15:08 36.5 C 103 H 12 128/85 94 O2 Del Method 04/10/24 22:52 04/10/24 22:02 Room Air 04/10/24 19:08 Room Air 04/10/24 15:40 04/10/24 15:08 Room Air PG Care Time/CCT Total # of Minutes Spent Total Time Spent with Patient: Total time spent is greater than 50% in coordination of care (as documented) at patient's floor/unit and/or counseling patient: Coding Level of Care Code 37837 SUB INP/OBS CARE 2/35MIN Diagnoses Colitis K52.9 Bloody diarrhea R19.7 Depression F32.A Asthma J45.909 Sleep apnea G47.30 Type 2 diabetes mellitus without complication, without long-term current use of insulin E11.9 Diabetes mellitus complication status: without complication Diabetes mellitus termite renewal inspector insulin use: without prison use Diabetes mellitus type: type 2 Hypertension I10 Hypertension type: unspecified GERD (gastroesophageal reflux disease) K21.9 Hyperlipidemia E78.5 (6) Diabetes mellitus Diabetes mellitus complication status: without complication Diabetes mellitus termite renewal inspector insulin use: without termite renewal inspector use Diabetes mellitus type: type 2 Qualified Code(s): E11.9 - Type 2 diabetes mellitus without complications (7) Hypertension Hypertension type: unspecified Qualified Code(s): I10 - Essential (primary) hypertension
[2024-04-11 06:35] LABS: Basophils # (auto) 0.02 K/uL (0.00-0.20); Basophils % (auto) 0.3 %; Eosinophils # (auto) 0.22 K/uL (0.00-0.50); Eosinophils % (auto) 3.3 %; Hematocrit (blood only) 38.9 % (37.0-47.0); Hemoglobin 13.2 g/dl (12.0-16.0); Immature Granulocytes # (auto) 0.02 K/uL (0.01-0.20); Immature Granulocytes % (auto) 0.3 %; Lymphocytes # (auto) 1.79 K/uL (1.20-3.40); Lymphocytes % (auto) 27.2 %; Mean Corpuscular Hemoglobin 32.2 pg (25.0-34.0); Mean Corpuscular Hgb Conc 33.9 g/dL (32.0-36.0); Mean Corpuscular Volume 94.9 fL (80.0-100.0); Mean Platelet Volume 10.5 fL (9.4-12.4); Monocytes # (auto) 0.58 K/uL (0.11-0.59); Monocytes % (auto) 8.8 %; Neutrophils # (auto) 3.94 K/uL (1.40-6.50); Neutrophils % (auto) 60.1 %; Platelet Count 272 K/uL (130-400); RDW Coefficient of Variation 12.8 % (11.5-14.5); RDW Standard Deviation 44.7 fL (36.4-46.3); White Blood Count 6.57 K/ul (4.8-10.8)
[2024-04-11 06:59] LABS: BUN Creatinine Ratio 7.4 (10-20); C Reactive Protein 5.25 mg/dl (0-0.5); Calcium 8.9 mg/dl (8.6-10.3); Creatinine Clr Calc Pharmacy 96.4 ml/min; Est GFR (African American) 111.8 ml/min; Est GFR (Non-African American) 96.4 ml/min; Potassium 3.8 mmol/L (3.5-5.1)
--- NOTE | 2024-04-11 15:46 | Discharge Summary ---
Date of Service April 11, 2024 Admission HPI Per Admitting Provider Patient had her first bloody, mucous-like this morning and has had five in total, including 1 since arriving at the hospital. Patient has never had bloody bowel movements before, but has diarrhea-predominant IBS for 20 yrs. Patient had her last colonoscopy in 2016, at which pt they said repeat in 5 yrs (everything nml, but suboptimal prep). Since that time pt has had ~ 1 IBS/diarrhea episode per year and just used Protonix and a probiotic, PB8. The patient had her last meal out at [employer] on Sat, had severe cramping at 9:30 pm, moved her bowels at 11 pm, diarrhea but pt thought it was IBS episode. At 6:30 am at which pt the cramping pain, fecal urgency woke her up. Every BM since then has been bloody diarrhea. Patient received two courses of antibiotics since January for sinus infections. Has not received any steroid courses for her rheumatoid arthritis and is on no alf medications for this condition. Principal Diagnosis gastroeneritis Discharge Exam Constitutional WD/WN, vitals as above Respiratory normal respiratory effort, lungs clear to auscultation Cardiovascular RRR, no murmur, no edema Extremities: normal capillary refill; no calf tenderness and no pedal edema Gastrointestinal (Abdomen) Inspection/Auscultation: normal bowel sounds Percussion/Palpation: + abdomen tender (tenderness in lower abdomen bilaterally) and abdomen soft; no abdominal mass Psychiatric A+Ox3, euthymic affect Discharge Data Allergies Allergy/AdvReac Type Severity Reaction Status Date / Time No Known Allergies Allergy Verified 04/09/24 17:59 Consultations 04/09/24 17:32 ED Decision to Admit Stat Ordered Studies 04/09/24 14:24 CT Abd and Pelvis [CT abd pelvis IV con only] Stat Hospital Course (1) Colitis: (2) Bloody diarrhea: (3) Depression: (4) Asthma: (5) Sleep apnea: (6) Diabetes mellitus: (7) Hypertension: (8) GERD (gastroesophageal reflux disease): (9) Hyperlipidemia: Plan Patient is a 59 yo F w/ a PMHx of HTN, HLD, T2DM, GERD, sleep apnea, depression, panic attacks, asthma, fibromyalgia, and [id number]-roxd who presents today after a 1-day history of bloody bowel movements/diarrhea that began this morning after experiencing cramping and diarrhea last night. 1) Bloody diarrhea/Nonspecific colitis - WBC count WNL, BMP WNL, - last colonoscopy in 2017, normal - CT-AP w/ IV contrast: showing nonspecific colitis from splenic flexure through sigmoid colon - Stool PCR panel ordered, still uncollected; C. diff toxin gene PCR ordered - ESR and CRP ordered, in the event there's an undiagnosed IBD component to this Symptoms appear to have improved, with supportive care. PCR were negative for infectious causes. Patient's heart rate also improved. 2) IBS-D (diarrhea sub-type) - continue duloxetine (treats multiple conditions present in patient) - resume pro-biotic (PB8 brand) once discharged 3) GERD - continue pantoprazole, 40 mg, PO, daily 4) HTN - hold lisinopril, 5 mg, PO, until followup 5) Asthma - continue azelastine, ipratropium bromide 6) T2DM - insulin order set placed, patient insulin naive - 50 CF, no basal insulin ordered, no carb coverage ordered 7) HLD - continue pravastatin 8) Sleep apnea - CPAP worn nightly; ordered during inpatient stay, 12 cm H2O cont. pressure Total Time Total Time Spent Total Time Spent (In Minutes): 32 Discharge Plan Discharge Items Patient Disposition: Home - Self-Care Reason For Visit: BLOODY DIARRHEA Discharge Diagnosis: Gastroentertis Condition on Discharge: Fair Activity: Resume your previous activity Non-emergency contact: Primary Care Provider Call non-emergency contact if: you have any medication questions Follow-up/Referrals: Santino Vasques III, CRNP [Primary Care Provider] - 04/21/24 9:20 am Diet: Regular Addtl Attending Provider Instructions: Good afternoon Mrs. Nj, I am happy to see your improvement over the past few days. Currently unsure what the cause of this was. Perhaps this was some sort of viral illness. The good news is that you improved with only supportive care. I still want you to followup with Gastroenterology in case they would like to do a colonoscopy sooner rather than later Recommend close followup with PCP in 1-2 weeks. Recommend to increase diet to include soups for next 3 days. Then you can increase to a regular diet. It was a pleasure. Kindest regards, Robby Boone Pending Studies at Discharge: No Stand-Alone Forms: My [facility], Smoking Cessation Medications and DC Order Prescriptions: Continued duloxetine [Cymbalta] 60 mg capsule,delayed release(DR/EC) 60 mg PO DAILY cyclobenzaprine 10 mg tablet 10 mg PO HS pantoprazole [Protonix] 40 mg tablet,delayed release (DR/EC) 40 mg PO DAILY azelastine 137 mcg (0.1 %) aerosol,spray 2 spray intranasal DAILY Qty: 30 11RF ipratropium bromide 21 mcg (0.03 %) spray,non-aerosol 1 spray intranasal BID Rx Instructions: administer into each nostril pravastatin 80 mg tablet 80 mg PO HS metformin 500 mg tablet extended release 24 hr 2,000 mg PO QAM Held lisinopril 5 mg tablet 5 mg PO DAILY Qty: 90 3RF Hold Instructions: Resume on 04/22/24. until followup with PCP. Admission Data Admit Date/Time: 04/09/24 20:16 Attending Provider: Robby Boone Admit Provider: Edwin Logan Primary Care Provider: Santino Vasques III Other Providers: Dorian Carr Other Interventions: Discharge Summary Assessment (RN) Last Done: 04/11/24 15:51 Coding Level of Care Code 44876 INP/OBS DISCH >30 MIN Diagnoses Colitis K52.9 Bloody diarrhea R19.7 Depression F32.A Asthma J45.909 Sleep apnea G47.30 Type 2 diabetes mellitus without complication, without long-term current use of insulin E11.9 Diabetes mellitus complication status: without complication Diabetes mellitus long term care administrator insulin use: without long term care administrator use Diabetes mellitus type: type 2 Hypertension I10 Hypertension type: unspecified GERD (gastroesophageal reflux disease) K21.9 Hyperlipidemia E78.5
[2024-04-12] MEDS ORDERED: metFORMIN HCL ER 500 MG TABCR PO SCH (09:00)
== END 2024-04-11 16:22 | disposition home or self-care (01) ==
LOC: ED 13:53 → 2N 20:16 → SUATTDRO 20:16 → INTOOBSV 20:16 → 2N 22:38